=== PATIENT | female | born 1995 | race Caucasian/White ===

== ENCOUNTER 2020-05-01 10:25 | Emergency (ER) | payer OTHER ==
[2020-05-01 10:28] VITALS: BP 104/69
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
== END 2020-05-01 12:08 | disposition home or self-care (01) ==
LOC: ED 10:25
DX: S16.1XXA Strain of muscle, fascia and tendon at neck level, initial encounter (principal); M79.604 Pain in right leg; V57.5XXA Driver of pick-up truck or van injured in collision with fixed or stationary object in traffic accident, initial encounter; W22.10XA Striking against or struck by unspecified automobile airbag, initial encounter; Y93.89 Activity, other specified; Y92.410 Unspecified street and highway as the place of occurrence of the external cause; Y99.8 Other external cause status
CPT/HCPCS: 72040